=== PATIENT | male | born 1985 | race Caucasian/White ===

== ENCOUNTER 2018-12-15 00:58 | Emergency (ER) | payer SELFPAY ==
[2018-12-15 01:21] VITALS: PULSE 78; BMI 25.8
--- NOTE | 2018-12-15 01:31 | PDOC ---
History of Present Illness - General Chief Complaint: Injury Stated Complaint: R HAND INJURY Time Seen by Provider: 12/15/18 01:30 History Source: Patient Exam Limitations: No Limitations - History of Present Illness Initial Comments: Eric Smith is a 33 yo healthy male who denies having any pmh that presents to the [facility] ER via taxi because he punched a window, shattered the glass, and his right hand won't stop bleeding. He has multiple lacerations on his right hand. States the hand hurts but he just came here to get it fixed. Patient thinks he updated his tetanus shot 2 years go PCP: None PSH: None reported Social Hx: Denies illicit drug usage Allergies: NKA, NKDA Past History - Past Medical History Allergies/Adverse Reactions: Allergies Allergy/AdvReac Type Severity Reaction Status Date / Time No Known Allergies Allergy Verified 12/15/18 01:21 Home Medications: Ambulatory Orders Cephalexin Monohydrate [Keflex -] 500 mg PO BID 7 Days #14 capsule 12/15/18 - Suicide/Smoking/Psychosocial Hx Smoking History: Never smoked Have you smoked in the past 12 months: No Information on smoking cessation initiated: No Hx Alcohol Use: Yes (Social) Drug/Substance Use Hx: No Review of Systems - Review of Systems Able to Perform ROS?: Yes Comments:: CONSTITUTIONAL: Absent: fever, no chills, no fatigue EYES: Absent: visual changes ENT: Absent: ear pain, no sore throat CARDIOVASCULAR: Absent: chest pain, no palpitations RESPIRATORY: Absent: cough, no SOB GI: Absent: abdominal pain, no nausea, no vomiting, no constipation, no diarrhea GENITOURINARY: Absent: dysuria, no frequency, no hematuria MUSKULOSKELETAL: Present: Arthralgia Absent: back pain, no myalgia SKIN: Present: Lacerations Absent: rash NEURO: Absent: headache *Physical Exam - Vital Signs Last Vital Signs Temp Pulse Resp BP Pulse Ox 98.2 F 78 18 115/73 96 12/15/18 00:58 12/15/18 00:58 12/15/18 00:58 12/15/18 00:58 12/15/18 00:58 - Physical Exam Comments: GENERAL: Well-appearing, well-nourished. No apparent distress. HEENT: Normocephalic, atraumatic. PERRL, EOM intact. CARDIOVASCULAR: Normal S1, S2. Regular rate and rhythm. PULMONARY: No evidence of respiratory distress. Lungs clear to auscultation bilaterally. No wheezing, rales or rhonchi. ABDOMEN: Soft, non-distended, non-tender. EXTREMITIES: Normal ROM in all four extremities. RIGHT HAND: Full sensation. 2+ radial and ulnar pulses. 5/5/ strength in every finger. Multiple small superficial dorsal lacerations around the DIP joints. Covered in blood. Minimal active bleeding. 3rd DIGIT: Irregular lesion with skin flap. No exposed bone or muscle. 4th DIGIT: Irregular lesion with skin flap. No exposed bone or muscle. 5th DIGIT: Small linear lesion with clean borders. SKIN: Warm, dry. No rash NEUROLOGICAL: No focal neurological deficits. Procedures - Laceration/Wound Repair Right Posterior Distal Dorsal Finger 3rd digit Wound Length: 5.0 to 7.5 cm Wound Explored: clean, no foreign body present Wound's Depth, Shape: superficial, irregular, flap Irrigated w/ Saline: Yes Betadine Prep: Yes Anesthesia: 1% Lidocaine w/ Epi Wound Debrided: minimal Wound Repaired With: Sutures (Simple sutures) Suture Size/Type: 5:0 Number of Sutures: 8 Layer Closure: No Deep Layer Suture Size/Type: 5:0 Sterile Dressing Applied: Yes Splint Applied: No Right Posterior Distal Dorsal Finger 4th digit Wound Length: 5.0 to 7.5 cm Wound Explored: clean, no foreign body present Wound's Depth, Shape: superficial, irregular, flap Irrigated w/ Saline: Yes Betadine Prep: Yes Anesthesia: 1% Lidocaine w/ Epi Wound Debrided: moderate Wound Repaired With: Sutures Suture Size/Type: 5:0 (simple sutures) Number of Sutures: 7 Layer Closure: No Sterile Dressing Applied: Yes Right Posterior Distal Dorsal Finger 5th digit Wound Length: to 2.5 cm Wound Explored: clean, no foreign body present Wound's Depth, Shape: superficial, linear Irrigated w/ Saline: Yes Betadine Prep: Yes Anesthesia: 1% Lidocaine w/ Epi Wound Debrided: minimal Wound Repaired With: Sutures (Simple sutures) Suture Size/Type: 5:0 Number of Sutures: 3 Sterile Dressing Applied: Yes ED Treatment Course - RADIOLOGY Radiograph Interpretation: Hand XR: Right Hand: Possible foreign body. 3 views of the right hand have been submitted. There is no sign of fracture or subluxation and no sign of blastic or lytic changes. There is some minimal swelling. There is no sign of a foreign body or soft tissue air. If symptoms persist, further imaging and orthopedic consultation may be of help. Medical Decision Making - Medical Decision Making Eric Smith is a 33 yo healthy male who denies having any pmh that presents to the [facility] ER via taxi because he punched a window, shattered the glass, and his right hand won't stop bleeding. He has multiple lacerations on his right hand. States the hand hurts but he just came here to get it fixed. Vital Signs Temp Pulse Resp BP Pulse Ox 98.2 F 78 18 115/73 96 12/15/18 00:58 12/15/18 00:58 12/15/18 00:58 12/15/18 00:58 12/15/18 00:58 MDM: Patient presents with 4/5 small superficial hand lacerations after he punched and shattered a glass window. Plan: X-ray to r/o foreign body, analgesia, tetanus update, laceration repairs XR: No fx or foreign bodies visualized. Procedures: 1) 3rd digit stitched together w 8 simple sutures. 2) 4th digit stitched together w 7 simple sutures. 3) 5th digit stitched together w 3 simple sutures. Disposition: Home with return precautions and FU in 7-10 days for suture removal - Dr. Bryan given for follow up in 3 to 5 days - Keflex sent to pharmacy - Strict return precautions given including pain worsens, your fingers become red, your hand starts to hurt, you cannot use your hand normally, your hand feels weird, if it becomes red, or if you think you are getting a fever, chills or any other signs of infection. *DC/Admit/Observation/Transfer Diagnosis at time of Disposition: Hand laceration Qualifiers: Encounter type: initial encounter Foreign body presence: without foreign body Laterality: right Qualified Code(s): S61.411A - Laceration without foreign body of right hand, initial encounter Finger laceration Qualifiers: Encounter type: initial encounter Finger: middle finger Damage to nail status: without damage Foreign body presence: without foreign body Laterality: right Qualified Code(s): S61.212A - Laceration without foreign body of right middle finger without damage to nail, initial encounter - Discharge Dispostion Condition at time of disposition: Improved Decision to Admit order: No - Prescriptions Prescriptions: Cephalexin Monohydrate [Keflex -] 500 mg PO BID 7 Days #14 capsule - Referrals Referrals: Thomas Bryan MD [Staff Physician] - - Patient Instructions Printed Discharge Instructions: DI for Laceration Repair -- Simple Additional Instructions: You came into the ER after you punched glass and cut your 3rd, 4th, and 5th digits knuckles. We put sutures in your fingers to fix your lacerations. We are giving you the number of a hand surgeon - Dr. Bryan - for you to call tomorrow and schedule a follow up appointment with him in the next 3 to 5 days. Please make sure you call up his office and schedule the appointment. We have sent an antibiotic to your pharmacy - keflex - for you to take twice a day for the next 7 days. Please make sure to go and pick it up and take as prescribed. Come back to the ER immediately if your pain worsens, your fingers become red, your hand starts to hurt, you cannot use your hand normally, your hand feels weird, if it becomes red, or if you think you are getting a fever, chills or any other signs of infection. You need to come back to the emergency room or any other health care provider to have your stitches taken out in 7-10 days form now. Thank you for coming to the [facility] ER. We hope you feel better soon! Print Language: AMHARIC - Post Discharge Activity
[2018-12-15] MEDS ORDERED: ACETAMINOPHEN 325 MG TABLET (FP) PO ONE (01:39)
[2018-12-15] MEDS ORDERED: DIPHTH,PERTUSS(ACELL),TET 0.5 ML DISP.SYRIN IM ONE ×2 (01:39→01:56)
[2018-12-15] MEDS ORDERED: ACETAMINOPHEN 325 MG TABLET (FP) ONE (01:55)
[2018-12-15] MEDS ORDERED: LIDOCAINE 1%/EPI 1:100000 (20 ML MULTI DOSE VIAL) IJ ONE (01:57)
[2018-12-15] MEDS ORDERED: LIDOCAINE 1%/EPI 1:100000 (20 ML MULTI DOSE VIAL) ONE (02:03)
--- NOTE | 2018-12-15 02:07 | PDOC ---
Attending Attestation - Resident Resident Name: Sage Aguilera - ED Attending Attestation I have performed the following: I have examined & evaluated the patient, The case was reviewed & discussed with the resident, I agree w/resident's findings & plan - HPI HPI: 12/15/18 03:42 Pt punched a glass because he was angry and he has lacerations to the PIP joints 2nd, 3rd, 4th fingers. He has no decreased ROM or glass in the wound. He states that he was upset; "rough week" he states . - Physicial Exam PE: 12/15/18 03:44 Agree with resident exam - Medical Decision Making 12/15/18 03:44 lacerations repaired with nylon 5.0 interrupted; 8 sutures, 7sutures and 3 sutures, respectively in the fingers. 12/15/18 03:44 I was present for the repair of the lacerations 12/15/18 03:48 Hnad XR normal; no glass FB.
[2018-12-15] MEDS ORDERED: CEPHALEXIN MONOHYDRATE 500 MG CAPSULE (UD) PO ONE (03:52)
[2018-12-15] MEDS ORDERED: CEPHALEXIN MONOHYDRATE 500 MG CAPSULE (UD) ONE (04:18)
[2018-12-15 04:22] VITALS: BP 118/70; TEMP 98
== END 2018-12-15 04:23 | disposition home or self-care (01) ==
LOC: JER 00:58
PROC: 0HQFXZZ Repair Right Hand Skin, External Approach (ICD-10-PCS; principal; 2018-12-15)
PROC: 3E0234Z Introduction of Serum, Toxoid and Vaccine into Muscle, Percutaneous Approach (ICD-10-PCS; 2018-12-15)
DX: W22.8XXA Striking against or struck by other objects, initial encounter (principal); Y93.89 Activity, other specified; Y92.89 Other specified places as the place of occurrence of the external cause; S61.411A Laceration without foreign body of right hand, initial encounter; S61.212A Laceration without foreign body of right middle finger without damage to nail, initial encounter; W22.01XA Walked into wall, initial encounter
CPT/HCPCS: 73130-TC-RT-FY; 90715; 99282-25

== ENCOUNTER 2022-01-31 11:26 | Inpatient (IN) | payer OTHER ==
[2022-01-31 13:05] VITALS: BMI 26.6
[2022-01-31] MEDS ORDERED: LOPERAMIDE HCL 2 MG CAPSULE PO PRN (13:36)
[2022-01-31] MEDS ORDERED: MAG HYDROX/AL HYDROX/SIMETH 30 ML UNIT-DOSE CUP PO PRN (13:36)
[2022-01-31] MEDS ORDERED: MAGNESIUM CITRATE 300 ML BOTTLE PO PRN (13:36)
[2022-01-31] MEDS ORDERED: guaiFENesin 200 MG/10 ML 10 ML UNIT-DOSE CUPS PO PRN (13:36)
[2022-01-31] MEDS ORDERED: ACETAMINOPHEN 325 MG TABLET (FP) PO PRN (13:36)
[2022-01-31] MEDS ORDERED: P-EPHED 60MG/TRIPROLIDI 2.5MG TABLET PO PRN (13:36)
[2022-01-31] MEDS ORDERED: IBUPROFEN 400 MG TABLET (FP) PO PRN (13:36)
[2022-01-31] MEDS ORDERED: MAGNESIUM HYDROX 2400MG/30ML ORAL SUSPENSION 30 ML CUP PO PRN (13:36)
[2022-01-31] MEDS: PRENATAL VITAMINS W/ FOLIC ACID TABLET (FP) PO SCH (22:20)
[2022-01-31] MEDS: hydrOXYzine PAMOATE 25 MG CAPSULE (FP) PO SCH ×2 (22:21→22:33)
[2022-01-31] MEDS: THIAMINE HCL 100 MG TABLET (FP) PO SCH (22:33)
[2022-01-31] MEDS: MELATONIN 5 MG TABLETS PO SCH (22:33)
[2022-02-01] MEDS: hydrOXYzine PAMOATE 25 MG CAPSULE (FP) PO SCH ×2 (07:14→10:49)
[2022-02-01 09:35] LABS: HEMOGLOBIN 15.1 GM/dL (11.7-16.9); MCH 30.9 pg (25.7-33.7); MCHC 33.6 g/dl (32.0-35.9); MEAN PLT VOLUME 9.1 fl (7.5-11.1); PLATELET COUNT 250 10^3/uL (134-434); RBC 4.89 M/mm3 (4.00-5.60); RDW 14.6 % (11.9-15.9)
[2022-02-01 09:54] LABS: CALCIUM 9.2 mg/dL (8.5-10.1)
[2022-02-01 09:55] LABS: ALBUMIN 3.6 g/dl (3.4-5.0); BLOOD UREA NITROGEN 11.5 mg/dL (7-18)
[2022-02-01 09:57] LABS: BILIRUBIN,TOTAL 0.6 mg/dL (0.2-1)
[2022-02-01 09:58] LABS: TOT PROT 6.7 g/dl (6.4-8.2)
[2022-02-01] MEDS ORDERED: hydrOXYzine PAMOATE 25 MG CAPSULE (FP) PO PRN (10:03)
[2022-02-01] MEDS: PRENATAL VITAMINS W/ FOLIC ACID TABLET (FP) PO SCH (10:47)
[2022-02-01 11:17] LABS: SYPHILIS W/ RPR CONF NON-REACTIVE (NONREACTIVE)
[2022-02-01 12:49] LABS: URINE APPEARANCE CLEAR; URINE BILIRUBIN NEGATIVE (NEGATIVE); URINE COLOR YELLOW; URINE GLUCOSE (UA) NEGATIVE (NEGATIVE); URINE KETONE NEGATIVE (NEGATIVE); URINE LEUK ESTERASE NEGATIVE (NEGATIVE); URINE NITRITE NEGATIVE (NEGATIVE); URINE PROTEIN NEGATIVE (NEGATIVE)
[2022-02-01] MEDS: THIAMINE HCL 100 MG TABLET (FP) PO SCH (21:41)
[2022-02-01] MEDS: MELATONIN 5 MG TABLETS PO SCH (21:41)
[2022-02-02] MEDS: PRENATAL VITAMINS W/ FOLIC ACID TABLET (FP) PO SCH (10:41)
[2022-02-02] MEDS: THIAMINE HCL 100 MG TABLET (FP) PO SCH (21:55)
[2022-02-02] MEDS: MELATONIN 5 MG TABLETS PO SCH (21:55)
[2022-02-03] MEDS: PRENATAL VITAMINS W/ FOLIC ACID TABLET (FP) PO SCH (10:00)
[2022-02-03] MEDS: THIAMINE HCL 100 MG TABLET (FP) PO SCH (21:10)
[2022-02-03] MEDS: MELATONIN 5 MG TABLETS PO SCH (21:11)
[2022-02-04] MEDS: PRENATAL VITAMINS W/ FOLIC ACID TABLET (FP) PO SCH (01:00)
[2022-02-04] MEDS: THIAMINE HCL 100 MG TABLET (FP) PO SCH (22:21)
[2022-02-04] MEDS: MELATONIN 5 MG TABLETS PO SCH (22:21)
[2022-02-05] MEDS: PRENATAL VITAMINS W/ FOLIC ACID TABLET (FP) PO SCH (10:38)
[2022-02-05] MEDS: THIAMINE HCL 100 MG TABLET (FP) PO SCH (21:28)
[2022-02-05] MEDS: MELATONIN 5 MG TABLETS PO SCH (21:29)
[2022-02-06] MEDS: PRENATAL VITAMINS W/ FOLIC ACID TABLET (FP) PO SCH (10:40)
[2022-02-06] MEDS: THIAMINE HCL 100 MG TABLET (FP) PO SCH (21:02)
[2022-02-06] MEDS: MELATONIN 5 MG TABLETS PO SCH (21:03)
[2022-02-07] MEDS: PRENATAL VITAMINS W/ FOLIC ACID TABLET (FP) PO SCH (10:42)
[2022-02-07] MEDS: THIAMINE HCL 100 MG TABLET (FP) PO SCH (21:04)
[2022-02-07] MEDS: MELATONIN 5 MG TABLETS PO SCH (21:05)
[2022-02-08] MEDS: PRENATAL VITAMINS W/ FOLIC ACID TABLET (FP) PO SCH (10:33)
[2022-02-08] MEDS: THIAMINE HCL 100 MG TABLET (FP) PO SCH (21:12)
[2022-02-08] MEDS: MELATONIN 5 MG TABLETS PO SCH (21:12)
[2022-02-08] MEDS: VITAMINS A AND D TOPICAL OINTMENT 60 GM TUBE TP SCH (21:13)
[2022-02-09] MEDS: PRENATAL VITAMINS W/ FOLIC ACID TABLET (FP) PO SCH (10:24)
[2022-02-09] MEDS: VITAMINS A AND D TOPICAL OINTMENT 60 GM TUBE TP SCH (10:25)
[2022-02-09] MEDS: HYDROCORTISONE 1% TOPICAL CREAM 30 GM TUBE TP SCH ×2 (14:34→22:06)
[2022-02-09] MEDS: MELATONIN 5 MG TABLETS PO SCH (22:05)
[2022-02-09] MEDS: THIAMINE HCL 100 MG TABLET (FP) PO SCH (22:05)
[2022-02-10] MEDS: PRENATAL VITAMINS W/ FOLIC ACID TABLET (FP) PO SCH (10:26)
[2022-02-10] MEDS: HYDROCORTISONE 1% TOPICAL CREAM 30 GM TUBE TP SCH ×2 (10:27→22:15)
[2022-02-10] MEDS: MELATONIN 5 MG TABLETS PO SCH (22:14)
[2022-02-10] MEDS: THIAMINE HCL 100 MG TABLET (FP) PO SCH (22:14)
[2022-02-11] MEDS: PRENATAL VITAMINS W/ FOLIC ACID TABLET (FP) PO SCH (10:33)
[2022-02-11] MEDS: HYDROCORTISONE 1% TOPICAL CREAM 30 GM TUBE TP SCH ×2 (10:33→22:14)
[2022-02-11] MEDS: MELATONIN 5 MG TABLETS PO SCH (22:14)
[2022-02-11] MEDS: THIAMINE HCL 100 MG TABLET (FP) PO SCH (22:14)
[2022-02-12] MEDS: HYDROCORTISONE 1% TOPICAL CREAM 30 GM TUBE TP SCH (11:06)
[2022-02-12] MEDS: PRENATAL VITAMINS W/ FOLIC ACID TABLET (FP) PO SCH (11:06)
[2022-02-12] MEDS: THIAMINE HCL 100 MG TABLET (FP) PO SCH (21:10)
[2022-02-12] MEDS: MELATONIN 5 MG TABLETS PO SCH (21:11)
[2022-02-13] MEDS: PRENATAL VITAMINS W/ FOLIC ACID TABLET (FP) PO SCH (10:26)
[2022-02-13] MEDS: MELATONIN 5 MG TABLETS PO SCH (21:13)
[2022-02-13] MEDS: THIAMINE HCL 100 MG TABLET (FP) PO SCH (21:13)
[2022-02-14 07:34] VITALS: BP 123/71; PULSE 69; RESP 18; TEMP 96.2
[2022-02-14] MEDS: PRENATAL VITAMINS W/ FOLIC ACID TABLET (FP) PO SCH (10:40)
== END 2022-02-14 10:50 | disposition home or self-care (01) | DRG 895 ==
LOC: YASAS 11:26 → Y5N 20:11
PROVIDERS: ADMIT Allergy & Immunology; ATTEND Surgery
PROC: HZ42ZZZ Group Counseling for Substance Abuse Treatment, Cognitive-Behavioral (ICD-10-PCS; principal; 2022-01-31)
DX: F10.10 Alcohol abuse, uncomplicated (principal); F41.9 Anxiety disorder, unspecified; F32.A Depression, unspecified
CPT/HCPCS: 36415; 80053; 81003; 85027; 86780; 86803; C9803-CS; U0003; U0005